=== PATIENT | male | born 1990 | race Two or more races ===

== ENCOUNTER 2020-03-29 18:35 | Inpatient (IN) | payer MEDICAID ==
[~2020-03-29] VITALS: Ht 170.2 cm; Wt 75.8 kg
[2020-03-29 19:32] LABS: Urine Bacteria FEW /hpf (None Seen); Urine Blood Negative /uL (Negative); Urine Mucus FEW (None Seen); Urine WBC 1 /hpf (0 - 3)
[2020-03-29 19:46] LABS: Basophils # (auto) 0 10 ^3/uL (0-0.2); Basophils % (auto) 0.3 % (0.0-2.0); Eosinophils # (auto) 0.1 10 ^3/uL (0-0.8); Eosinophils % (auto) 0.6 % (0.0-7.0); Hematocrit 44.6 % (41.0-53.0); Hemoglobin 15.2 g/dL (13.5-17.5); Lymphocytes # (auto) 1.4 10 ^3/uL (0.4-5.4); Lymphocytes % (auto) 16.4 % (10.0-50.0); Mean Corpuscular Hemoglobin 30.2 pg (28.0-32.0); Mean Corpuscular Volume 88.7 fL (80.0-100.0); Monocytes # (auto) 0.5 10 ^3/uL (0-1.3); Monocytes % (auto) 6.2 % (0.0-12.0); Neutrophils # (auto) 6.4 10 ^3/uL (1.6-8.6); Neutrophils % (auto) 76.5 % (37.0-80.0); Nucleated Red Blood Cells % 0.1 %; Platelet Count (auto) 192 10^3/uL (140-450); Red Blood Cells 5.03 10^6/uL (4.5-5.90); Red Cell Distribution Width 13.3 % (11.8-14.3); White Blood Cell 8.4 10^3/uL (4.4-10.8)
[2020-03-29 19:49] LABS: Amphetamine Screen, Urine NEGATIVE (NEGATIVE); Barbiturate Scree,Urine NEGATIVE (NEGATIVE); Benzodiazephine Screen, Urine NEGATIVE (NEGATIVE); Cannabinoid Screen, Urine NEGATIVE (NEGATIVE); Cocaine Screen, Urine NEGATIVE (NEGATIVE); Opiate Scree,Urine NEGATIVE (NEGATIVE); Phencyclidine Screen, Urine NEGATIVE (NEGATIVE)
[2020-03-29 20:02] LABS: Albumin 4.3 g/dL (3.4-5.0); Calcium 8.8 mg/dL (8.5-10.1); Potassium 3.7 mmol/L (3.5-5.1)
[2020-03-29 20:05] LABS: BUN/Creatinine Ratio 11.6
[2020-03-29] MEDS ORDERED: ACETAMINOPHEN 325 MG TAB PO PRN (21:45)
[2020-03-29] MEDS ORDERED: LORazepam 0.5 MG TAB PO PRN (21:45)
[2020-03-29] MEDS ORDERED: TEMAZEPAM 15 MG CAP PO PRN (21:45)
[2020-03-29] MEDS ORDERED: DOCUSATE SOD 100 MG CAP PO PRN (21:45)
[2020-03-29] MEDS ORDERED: DEXTROSE (50%) 50ML SYRG IV PRN (21:45)
[2020-03-29] MEDS ORDERED: ONDANSETRON HCL 4 MG/2 ML VIAL IV PRN (21:45)
[2020-03-29] MEDS ORDERED: ACETAMINOPHEN 500 MG TAB PO PRN (21:45)
[2020-03-29] MEDS: SODIUM CHLORIDE 0.9% 1,000 ML IV SCH (21:59)
[2020-03-29] MEDS ORDERED: ALBUTEROL SULF HFA 90MCG INH 200DOSE IN SCH (22:00)
[2020-03-29] MEDS: ZINC SULFATE 220mg CAP or TAB PO SCH (22:15)
[2020-03-29] MEDS: DOXYCYCLINE 100 MG TAB/CAP PO SCH (22:15)
[2020-03-29] MEDS: ASCORBIC ACID 1,000 MG TAB PO SCH (22:15)
[2020-03-29] MEDS: MORPHINE SULF INJ 2 MG/ML SYRINGE 1ML IV PRN (22:38)
[2020-03-29 22:50] VITALS: BP 138/92
--- NOTE | 2020-03-29 22:50 | NUR ---
MS admit from [facility],CHRIS PAGE admitted to tele/MS. Patient oriented to Francisca Barajas RN primary RN, unit, room, bed, and unit policies regarding patient care and visiting hours. Patient weighed by bedscale and encouraged to call if they need something. All questions and concerns addressed, patient verbalized understanding. Note: Fall and safety precautions in place. Call light within reach.
[2020-03-29 23:00] VITALS: BP 138/92
[2020-03-29] MEDS: InsuLIN REG 1unit/0.01ml Soln (100units/ml) SC SCH (23:49)
[2020-03-29] MEDS: ACCU-CHEK COMFORT CURVE STRIP VI SCH (23:49)
[2020-03-30 01:45] LABS: INR 1.05 (0.9-1.15); Partial Thromboplastin Time 30.7 sec (23.64-32.05)
[2020-03-30 05:00] VITALS: BP_SYST 12; BP_SYST 122; BP_DIAS 72
[2020-03-30] MEDS: ACCU-CHEK COMFORT CURVE STRIP VI SCH ×4 (05:59→23:53)
[2020-03-30] MEDS: InsuLIN REG 1unit/0.01ml Soln (100units/ml) SC SCH ×4 (05:59→23:53)
[2020-03-30 06:43] LABS: Basophils # (auto) 0 10 ^3/uL (0-0.2); Basophils % (auto) 0.4 % (0.0-2.0); Eosinophils # (auto) 0.2 10 ^3/uL (0-0.8); Eosinophils % (auto) 2.5 % (0.0-7.0); Hematocrit 42.8 % (41.0-53.0); Hemoglobin 14.3 g/dL (13.5-17.5); Lymphocytes # (auto) 2.2 10 ^3/uL (0.4-5.4); Lymphocytes % (auto) 33.9 % (10.0-50.0); Mean Corpuscular Hemoglobin 29.7 pg (28.0-32.0); Mean Corpuscular Hgb Conc. 33.5 g/dL (32.0-36.0); Mean Corpuscular Volume 88.9 fL (80.0-100.0); Monocytes # (auto) 0.6 10 ^3/uL (0-1.3); Monocytes % (auto) 9.5 % (0.0-12.0); Neutrophils # (auto) 3.5 10 ^3/uL (1.6-8.6); Neutrophils % (auto) 53.7 % (37.0-80.0); Nucleated Red Blood Cells % 0.1 %; Platelet Count (auto) 194 10^3/uL (140-450); Red Blood Cells 4.82 10^6/uL (4.5-5.90); Red Cell Distribution Width 13.3 % (11.8-14.3); White Blood Cell 6.6 10^3/uL (4.4-10.8)
[2020-03-30 06:58] LABS: Albumin 3.6 g/dL (3.4-5.0); Calcium 8.3 mg/dL (8.5-10.1); Magnesium 2.3 mg/dL (1.6-2.6)
[2020-03-30 07:02] LABS: BUN/Creatinine Ratio 10.5; Bilirubin, Total 0.8 mg/dL (0.2-1.0); Total Protein 6.7 g/dL (6.4-8.2)
[2020-03-30 08:00] VITALS: BP 120/70
[2020-03-30] MEDS: ZINC SULFATE 220mg CAP or TAB PO SCH (09:47)
[2020-03-30] MEDS: cefTRIAXone 1GM/50ML D5W 50 ML IV SCH (09:47)
[2020-03-30] MEDS: DOXYCYCLINE 100 MG TAB/CAP PO SCH ×2 (09:47→21:41)
[2020-03-30] MEDS: ENOXAPARIN SOD 40 MG/0.4 ML SYRINGE SC SCH (09:48)
[2020-03-30] MEDS: ASCORBIC ACID 1,000 MG TAB PO SCH (10:00)
--- NOTE | 2020-03-30 11:11 | NUR ---
CALLED LAB VIA 0576 REGARDING RAPID COVID-19 TEST. SPOKE TO SANDRA Villanueva PER SANDRA RAPID COVID-19 WAS RECEIVED LAST NIGHT, PENDING RESULT.
[2020-03-30] MEDS ORDERED: BUPIVACAINE 0.25% INJ 50ML VIAL ONE (12:43)
[2020-03-30] MEDS ORDERED: ceFAZolin 1GM/50ML 50 ML IV ONE (12:55)
[2020-03-30] MEDS ORDERED: FAMOTIDINE (10MG/ML) 2ML VL IV ONE (12:56)
[2020-03-30] MEDS ORDERED: ROCURONIUM 10MG/ML 10ML VIAL IV ONE (12:57)
[2020-03-30] MEDS ORDERED: fentaNYL CITRATE 5 ML ONE (12:57)
[2020-03-30] MEDS ORDERED: HYDROmorphone HCL 2 MG/ML VL ONE (12:57)
[2020-03-30] MEDS ORDERED: PROPOFOL 10 MG/ML 20 ML IV ONE (12:58)
[2020-03-30] MEDS ORDERED: GLYCOPYRROLATE 0.2 MG/ML 1ML VIAL ONE ×2 (12:58→13:39)
[2020-03-30] MEDS ORDERED: MIDAZOLAM HCL 1MG/1ML-2 ML VIAL ONE (12:58)
[2020-03-30] MEDS ORDERED: LIDOCAINE 2% (LOCAL ANESTH.) PF 5ml SDV ONE (12:58)
[2020-03-30] MEDS ORDERED: KETOROLAC TROMETH 30 MG/ML 1ML VIAL ONE (12:58)
[2020-03-30] MEDS ORDERED: NEOSTIGMINE 1 MG/ML INJ (10mg/10ML VIAL) ONE (13:39)
[2020-03-30] MEDS ORDERED: DexAMETHasone SOD PHOS 10MG/1ML VIAL INJ ONE (13:40)
[2020-03-30] MEDS ORDERED: HYDROmorphone HCL 2 MG/ML VL IV PRN (14:30)
[2020-03-30] MEDS ORDERED: ONDANSETRON HCL 4 MG/2 ML VIAL IV PRN (14:30)
--- NOTE | 2020-03-30 15:26 | NUR ---
PT BACK TO ROOM S/P LAP APPENDECTOMY, AAOX4, BREATHING EVEN NON LABORED, THREE SMALL DRESSING CLEAN/DRY/INTACT, NO BLEEDING NOTED. VS: 98.,82, 127/77, 18, 96%.
[2020-03-30] MEDS: SODIUM CHLORIDE 0.9% 1,000 ML IV SCH (15:38)
--- NOTE | 2020-03-30 16:08 | NUR ---
DR. RUIZ NOTIFIED PT IS CLEARED FOR DISCHARGE BY DR. BOJORQUEZ.
--- NOTE | 2020-03-30 16:09 | NUR ---
DR. RUIZ AT BEDSIDE, MD STATED TO KEEP PT TONIGHT FOR MONITORING. WILL DISCHARGE TOMORROW.
--- NOTE | 2020-03-30 16:11 | NUR ---
OBTAINED NEW ORDER FROM DOCTOR RUIZ TO HOLD DISCHARGE TODAY. WILL DISCHARGE PT.TOMORROW .
[2020-03-30 17:00] VITALS: BP 120/70
[2020-03-30] MEDS: HYDROcodone-ACET 5/325MG TAB PO PRN ×2 (19:04→21:41)
--- NOTE | 2020-03-30 19:10 | NUR ---
Patient is currently ambulating around unit. Spoke to patient said he has mild pain at about a 5 but does not want any medication at this time.
[2020-03-30 20:00] VITALS: BP_DIAS 70
--- NOTE | 2020-03-30 21:00 | NUR ---
Patient notified me that he did not take the [place] that was given earlier. Medication was wasted.
[2020-03-30 21:59] VITALS: BP 118/65
[2020-03-31 05:00] VITALS: BP_SYST 122; BP_SYST 99; BP_DIAS 54; BP_DIAS 67
[2020-03-31] MEDS: MORPHINE SULF INJ 2 MG/ML SYRINGE 1ML IV PRN ×2 (05:35→10:45)
[2020-03-31] MEDS: ACCU-CHEK COMFORT CURVE STRIP VI SCH ×2 (05:35→12:45)
[2020-03-31] MEDS: InsuLIN REG 1unit/0.01ml Soln (100units/ml) SC SCH ×2 (05:35→12:00)
[2020-03-31 06:26] LABS: Basophils # (auto) 0 10 ^3/uL (0-0.2); Basophils % (auto) 0.3 % (0.0-2.0); Eosinophils # (auto) 0 10 ^3/uL (0-0.8); Eosinophils % (auto) 0.1 % (0.0-7.0); Hemoglobin 13.6 g/dL (13.5-17.5); Lymphocytes # (auto) 1.7 10 ^3/uL (0.4-5.4); Lymphocytes % (auto) 16.9 % (10.0-50.0); Mean Corpuscular Hemoglobin 30.3 pg (28.0-32.0); Mean Corpuscular Volume 89.3 fL (80.0-100.0); Monocytes # (auto) 0.8 10 ^3/uL (0-1.3); Monocytes % (auto) 8.3 % (0.0-12.0); Neutrophils # (auto) 7.4 10 ^3/uL (1.6-8.6); Neutrophils % (auto) 74.4 % (37.0-80.0); Platelet Count (auto) 200 10^3/uL (140-450); Red Blood Cells 4.48 10^6/uL (4.5-5.90); Red Cell Distribution Width 13.2 % (11.8-14.3)
[2020-03-31] MEDS: SODIUM CHLORIDE 0.9% 1,000 ML IV SCH (06:56)
[2020-03-31 07:00] LABS: BUN/Creatinine Ratio 16.2; Calcium 8.3 mg/dL (8.5-10.1)
--- NOTE | 2020-03-31 07:30 | NUR ---
Opening Shift Note Assumed patient care from NOC RN. Patient currently resting in bed, eyes closed, respirations even and unlabored. Safety precautions in place, will continue to monitor.
[2020-03-31 09:00] VITALS: BP 108/68
[2020-03-31] MEDS: ASCORBIC ACID 1,000 MG TAB PO SCH (10:00)
[2020-03-31] MEDS: cefTRIAXone 1GM/50ML D5W 50 ML IV SCH (10:00)
[2020-03-31] MEDS: ZINC SULFATE 220mg CAP or TAB PO SCH (10:00)
[2020-03-31] MEDS: ENOXAPARIN SOD 40 MG/0.4 ML SYRINGE SC SCH (10:00)
[2020-03-31] MEDS: DOXYCYCLINE 100 MG TAB/CAP PO SCH (10:01)
[2020-03-31 13:00] VITALS: BP 123/86
[2020-03-31 16:25] VITALS: BP 123/86
[2020-03-31 17:00] VITALS: BP 120/73
--- NOTE | 2020-03-31 19:22 | NUR ---
Discharge Discharge instructions given as ordered. Encourage to follow up with PMD as instructed. All questions and concerns addressed. Patient verbalized understanding. Medication reconciliation form completed and copy given to patient. IV removed with catheter intact, pressure dressing applied. Patient taken to vehicle via wheelchair with all personal belongings, accompanied by staff and family member. No distress noted at time of departure.
== END 2020-03-31 19:08 | disposition home or self-care (01) | DRG 234 ==
LOC: ER 18:35 → OVERFLOW 18:36 → WEST WING 22:50
PROVIDERS: ADMIT Hospitalist; ATTEND Hospitalist
PROC: 0DTJ4ZZ Resection of Appendix, Percutaneous Endoscopic Approach (ICD-10-PCS; principal; 2020-03-31)
DX: K35.80 Unspecified acute appendicitis (principal); K59.00 Constipation, unspecified; F17.210 Nicotine dependence, cigarettes, uncomplicated; Z20.828 Contact with and (suspected) exposure to other viral communicable diseases
CPT/HCPCS: 36415; 71045; 74176; 80048; 80053; 80061; 80307; 81001; 82150; 82962; 83036; 83690; 83735; 85025; 85610; 85730; 87086; 88302; 93005; G0378; J0690; J0696; J1100; J1885; J2001; J2250; J2704; J3490